=== PATIENT | female | born 1990 | race Caucasian/White ===

== ENCOUNTER 2019-02-25 14:06 | Emergency (ER) | payer OTHER, SELFPAY ==
[2019-02-25 14:22] VITALS: BP 127/76; PULSE 108; RESP 13; TEMP 37.1; O2SAT 98; BMI 44.2
--- NOTE | 2019-02-25 14:34 | ED.FEMALEGU ---
HPI - Female Genitourinary General Chief complaint: OB/Uterine Contractions Stated complaint: spotting, cramping 5 weeks Time Seen by Provider: 02/25/19 14:13 Source: patient and family Mode of arrival: ambulatory Limitations: no limitations History of Present Illness HPI Narrative: 28-year-old female at 5 weeks presents with a chief complaint of spotting and generalized lower pelvic cramping for the past week or so. She has been seen and evaluated both by her primary care provider and by another emergency department. Her most recent HCG was 240 on Tuesday. She had been scheduled for an outpatient pelvic ultrasound. She is not dizzy or weak or lightheaded. She denies any fever or chills. She denies heavy bleeding, only noted with wiping MD Complaint: vaginal bleeding Onset (ago): day(s) Severity: mild Quality: Aching Duration: constant Relieving factors: none Exacerbating factors: none Vaginal discharge: dark blood Related Data : 3 Para: 2 Review of Systems Constitutional Denies chills, Denies fever(s), Denies lethargy and Denies weakness Eyes Denies change in vision, Denies eye discharge, Denies irritation and Denies loss of vision ENT Ears, Nose, Mouth, and Throat: Denies change in voice, Denies neck pain and Denies sore throat Cardiovascular Denies chest pain, Denies irregular heart rhythm, Denies lightheadedness, Denies palpitations, Denies dyspnea, Denies dyspnea on exertion and Denies orthopnea Respiratory Denies cough, Denies dyspnea, Denies dyspnea on exertion and Denies wheezing Gastrointestinal Gastrointestinal: Denies abdominal pain, Denies change in bowel habits, Denies diarrhea, Denies nausea and Denies vomiting Genitourinary Reports abnormal vaginal bleeding, Denies hematuria, Denies flank pain, Denies urinary incontinence and Denies urinary urgency Musculoskeletal Denies neck pain Integumentary/Breasts Denies pruritus, Denies erythema, Denies rash and Denies wounds Neurologic Denies confusion, Denies loss of vision and Denies weakness Psychiatric Denies anxiety, Denies confusion, Denies depression, Denies homicidal ideation and Denies suicidal ideation Endocrine Denies palpitations Hematologic/Lymphatic Denies easy bruising Allergic/Immunologic Denies wheezing PFSH Social History Smoking Status: Never smoker Social History Smoking Status: Never smoker Exam Narrative Exam Narrative: GEN: AOx3 and in mild distress EYES: Pupils are equal, round, and reactive to light and accommodation. Extraoccular muscles are intact bilaterally. There is no subconjunctival hemorrhage or exudate. CHEST: Lungs are clear to auscultation bilaterally and free of wheezes, rales, or rhonchi. Heart rate is regular rhythm, there are no murmurs, clicks, rubs, or gallops. There is no chest wall tenderness. ABD: Abdomen is soft and nontender. There is no guarding or rebound. Bowel sounds are normal in all 4 quadrants. There is no mass or organomegaly. EXT: Full painless ROM of all extremities with no loss of sensation or strength. SKIN: Warm, pink, and dry. No erythema or rash Initial Vital Signs Initial Vital Signs: Vital Signs Temperature 98.8 F 02/25/19 14:22 Pulse Rate 108 H 02/25/19 14:22 Respiratory Rate 13 02/25/19 14:22 Blood Pressure 127/76 02/25/19 14:22 Pulse Oximetry 98 02/25/19 14:22 Course Orders Ordered: ED Orders 02/25/19 14:40 Complete Blood Count AUTO DIFF Stat HCG Quantitative Stat 02/25/19 14:45 US pelvic complete Stat Vital Signs - 8 hr 02/25/19 14:22 02/25/19 16:19 02/25/19 16:48 Temperature 98.8 F Pulse Rate 108 H 93 H 82 Respiratory Rate 13 15 20 Blood Pressure 127/76 149/104 H Blood Pressure [Right Arm] 130/75 Pulse Oximetry 98 98 99 MDM - Female Genitourinary Lab Data Result diagrams: 02/25/19 14:40 Lab Results 02/25/19 02/25/19 Range/Units 14:40 14:40 WBC 8.7 (4.5-11.0) X10^3/uL RBC 4.65 (4.0-5.2) X10^6/uL Hgb 13.6 (12.0-16.0) g/dL Hct 40.0 (36-46) % MCV 86.0 (80-100) fL MCH 29.2 (26-34) PG MCHC 33.9 (30-36) % RDW 13.0 (11.6-14.8) % Plt Count 289 (150-400) X10^3/uL Neut % (Auto) 60.7 (50-75) % Lymph % (Auto) 30.1 (25-40) % [place] % (Auto) 6.0 (3-14) % Eos % (Auto) 2.4 (2-4) % Baso % (Auto) 0.8 (0-2) % Neut # (Auto) 5300 (3968-2813) /uL Lymph # (Auto) 2600 (7687-1422) /uL [place] # (Auto) 500 (0-900) /uL Eos # (Auto) 200 (0-450) /uL Baso # (Auto) 100 (0-100) /uL HCG, Quant 95.06 mIU/mL Urine Dip Bedside Urine Glucose Negative Bedside Urine Bilirubin - Negative Bedside Urine Ketone - Negative Urine Specific [place] 1.015 Bedside Urine Occult Blood +++ Bedside Urine pH 8.0 Bedside Urine Protein - Negative Bedside Urine Urobilinogen - Negative Bedside Urine Nitrite - Negative Bedside Urine Leukocytes - Negative Esterase Imaging Data Pelvic US: Radiologist's impression: Sulma Middleton 28 F 1990 [place] [address] Ultrasound Report Signed Patient: Sulma Middleton [facility]#: [id number] : 1990Acct:[id number] Age/Sex: 28 / FDate of Service: 02/25/19 Loc: ED Accession Number: [id number] Procedure: US pelvic complete Ordering Provider: Kj Jimenez D.O. PROCEDURE: US PELVIC COMPLETE INDICATIONS: POSITIVE HCG; BLEEDING, PAIN TECHNIQUE: Real-time scanning was performed of the pelvic organs, with image documentation. Additional endovaginal scanning was necessary due to incomplete visualization of the adnexal and endometrial structures by transabdominal scanning. COMPARISON: None. FINDINGS: Transabdominal scanning: Limited scanning through the kidneys shows no hydronephrosis. No pathologic free abdominal or pelvic fluid. Endovaginal scanning: Uterus: Uterus is normal in size at 7.3 x 5.8 x 6.3 cm. The endometrium measures 13 mm in combined thickness. No findings of an intrauterine can be seen. Ovaries: The right ovary measures 3.5 x 2.2 0.8 cm and demonstrates an unremarkable sonographic appearance. The left ovary measures 2.6 x 2.3 x 3.1 cm. Immediately adjacent to the left ovary, there is a complex mass with increased internal vascularity that measures 2.7 x 1.6 x 1.5 cm. IMPRESSION: These findings are highly suspicious for a left adnexal ectopic . An urgent COMPUTER NETWORK ENGINEER consultation is recommended. Note: Findings and recommendations discussed by telephone with Dr. Jimenez at 4:24 PM [place] time on the day of dictation. Dictated by: Jarred Robertson M.D. on 02/25/2019 at 15:21 Approved by: Jarred Robertson M.D. on 02/25/2019 at 15:25 MDM Narrative Medical decision making narrative: 28-year-old female at about 5 weeks presents with a week or so of spotting and pelvic cramping. HCG was at 2:40 a.m. on Tuesday and dropped to the 90s today. Bleeding is minimal. Pelvic ultrasound suggests a vascular structure next to the left ovary the raising the question of an ectopic by Radiology. I discussed the case with on-call OB and given the low HCG (below discriminatory zone) we both question whether this is ectopic. Ob suggest this is likely a corpus luteum cyst and recommends the patient be followed up closely [place] Return precautions given to the patient and her . All questions answered to their apparent satisfaction. Discharge Plan Departure Patient Disposition: Home Clinical Impression: Pelvic pain affecting Qualifiers: Trimester: first trimester Qualified Code(s): O26.891 - Other specified related conditions, first trimester Discharge Date/Time: 02/25/19 16:49 Interventions: ED Discharge Assessment Last Done: 02/25/19 16:48 Instructions: DI for Pelvic Pain Activity Restrictions/Additional Instructions: *You have been diagnosed with [pelvic pain in , possible ectopic] *What to do: *Continue to take medications as directed: *Follow up with your OB provider NO LATER THAN TUESDAY, call for an appointment. Let them know you were seen in the Emergency Department and that we ask that you be seen in follow up *Return to ER if you should have any new, worsening or concerning symptoms, such as [increasing pain, fever greater than 101 F, persistent vomiting, bleeding through more than 1 pad per hour, or any other bothersome symptoms *I've given you contact info for Dr. White (our OB) in the event you have trouble getting [place] Referrals: Jay White MD [Physician] -
--- NOTE | 2019-02-25 14:45 | DI.US.S_ITS ---
PROCEDURE: US PELVIC COMPLETE INDICATIONS: POSITIVE HCG; BLEEDING, PAIN TECHNIQUE: Real-time scanning was performed of the pelvic organs, with image documentation. Additional endovaginal scanning was necessary due to incomplete visualization of the adnexal and endometrial structures by transabdominal scanning. COMPARISON: None. FINDINGS: Transabdominal scanning: Limited scanning through the kidneys shows no hydronephrosis. No pathologic free abdominal or pelvic fluid. Endovaginal scanning: Uterus: Uterus is normal in size at 7.3 x 5.8 x 6.3 cm. The endometrium measures 13 mm in combined thickness. No findings of an intrauterine can be seen. Ovaries: The right ovary measures 3.5 x 2.2 0.8 cm and demonstrates an unremarkable sonographic appearance. The left ovary measures 2.6 x 2.3 x 3.1 cm. Immediately adjacent to the left ovary, there is a complex mass with increased internal vascularity that measures 2.7 x 1.6 x 1.5 cm. IMPRESSION: These findings are highly suspicious for a left adnexal ectopic . An urgent ONLINE HEALTH AND FITNESS COACH consultation is recommended. Note: Findings and recommendations discussed by telephone with Dr. Jimenez at 4:24 PM [place] time on the day of dictation. Dictated by: Jarred Robertson M.D. on 02/25/2019 at 15:21 Approved by: Jarred Robertson M.D. on 02/25/2019 at 15:25
[2019-02-25 14:48] LABS: Add Manual Diff / Slide Review NO; Basophils Absolute Auto 100 /uL (0-100); Basophils Percent Auto 0.8 % (0-2); Eosinophils Absolute Auto 200 /uL (0-450); Eosinophils Percent Auto 2.4 % (2-4); Hemoglobin 13.6 g/dL (12.0-16.0); Lymphocytes Absolute Auto 2600 /uL (1100-4500); Lymphocytes Percent Auto 30.1 % (25-40); Mean Corpuscular HGB Conc 33.9 % (30-36); Mean Corpuscular Hemoglobin 29.2 PG (26-34); Monocytes Absolute Auto 500 /uL (0-900); Neutrophils Absolute Auto 5300 /uL (1500-7000); Neutrophils Percent Auto 60.7 % (50-75); Platelet Count 289 X10^3/uL (150-400); Red Blood Cell Count 4.65 X10^6/uL (4.0-5.2); White Blood Cell Count 8.7 X10^3/uL (4.5-11.0)
--- NOTE | 2019-02-25 14:49 | ED_ITS ---
HPI - Female Genitourinary General Chief complaint: OB/Uterine Contractions Stated complaint: spotting, cramping 5 weeks Time Seen by Provider: 02/25/19 14:13 Source: patient and family Mode of arrival: ambulatory Limitations: no limitations History of Present Illness HPI Narrative: 28-year-old female at 5 weeks presents with a chief complaint of spotting and generalized lower pelvic cramping for the past week or so. She has been seen and evaluated both by her primary care provider and by another emergency department. Her most recent HCG was 240 on Tuesday. She had been scheduled for an outpatient pelvic ultrasound. She is not dizzy or weak or lightheaded. She denies any fever or chills. She denies heavy bleeding, only noted with wiping MD Complaint: vaginal bleeding Onset (ago): day(s) Severity: mild Quality: Aching Duration: constant Relieving factors: none Exacerbating factors: none Vaginal discharge: dark blood Related Data : 3 Para: 2 Review of Systems Constitutional Denies chills, Denies fever(s), Denies lethargy and Denies weakness Eyes Denies change in vision, Denies eye discharge, Denies irritation and Denies loss of vision ENT Ears, Nose, Mouth, and Throat: Denies change in voice, Denies neck pain and Den ies sore throat Cardiovascular Denies chest pain, Denies irregular heart rhythm, Denies lightheadedness, Denies palpitations, Denies dyspnea, Denies dyspnea on exertion and Denies orthopnea Respiratory Denies cough, Denies dyspnea, Denies dyspnea on exertion and Denies wheezing Gastrointestinal Gastrointestinal: Denies abdominal pain, Denies change in bowel habits, Denies diarrhea, Denies nausea and Denies vomiting Genitourinary Reports abnormal vaginal bleeding, Denies hematuria, Denies flank pain, Denies urinary incontinence and Denies urinary urgency Musculoskeletal Denies neck pain Integumentary/Breasts Denies pruritus, Denies erythema, Denies rash and Denies wounds Neurologic Denies confusion, Denies loss of vision and Denies weakness Psychiatric Denies anxiety, Denies confusion, Denies depression, Denies homicidal ideation and Denies suicidal ideation Endocrine Denies palpitations Hematologic/Lymphatic Denies easy bruising Allergic/Immunologic Denies wheezing PFSH Social History Smoking Status: Never smoker Social History Smoking Status: Never smoker Exam Narrative Exam Narrative: GEN: AOx3 and in mild distress EYES: Pupils are equal, round, and reactive to light and accommodation. Extraoccular muscles are intact bilaterally. There is no subconjunctival hemorrhage or exudate. CHEST: Lungs are clear to auscultation bilaterally and free of wheezes, rales, or rhonchi. Heart rate is regular rhythm, there are no murmurs, clicks, rubs, or gallops. There is no chest wall tenderness. ABD: Abdomen is soft and nontender. There is no guarding or rebound. Bowel sounds are normal in all 4 quadrants. There is no mass or organomegaly. EXT: Full painless ROM of all extremities with no loss of sensation or strength. SKIN: Warm, pink, and dry. No erythema or rash Initial Vital Signs Initial Vital Signs: Vital Signs Temperature 98.8 F 02/25/19 14:22 Pulse Rate 108 H 02/25/19 14:22 Respiratory Rate 13 02/25/19 14:22 Blood Pressure 127/76 02/25/19 14:22 Pulse Oximetry 98 02/25/19 14:22 Course Orders Ordered: ED Orders 02/25/19 14:40 Complete Blood Count AUTO DIFF Stat HCG Quantitative Stat 02/25/19 14:45 US pelvic complete Stat Vital Signs - 8 hr 02/25/19 14:22 02/25/19 16:19 02/25/19 16:48 Temperature 98.8 F Pulse Rate 108 H 93 H 82 Respiratory Rate 13 15 20 Blood Pressure 127/76 149/104 H Blood Pressure [Right Arm] 130/75 Pulse Oximetry 98 98 99 MDM - Female Genitourinary Lab Data Result diagrams: 02/25/19 14:40 Lab Results 02/25/19 02/25/19 Range/Units 14:40 14:40 WBC 8.7 (4.5-11.0) X10^3/uL RBC 4.65 (4.0-5.2) X10^6/uL Hgb 13.6 (12.0-16.0) g/dL Hct 40.0 (36-46) % MCV 86.0 (80-100) fL MCH 29.2 (26-34) PG MCHC 33.9 (30-36) % RDW 13.0 (11.6-14.8) % Plt Count 289 (150-400) X10^3/uL Neut % (Auto) 60.7 (50-75) % Lymph % (Auto) 30.1 (25-40) % [facility] % (Auto) 6.0 (3-14) % Eos % (Auto) 2.4 (2-4) % Baso % (Auto) 0.8 (0-2) % Neut # (Auto) 5300 (1612-6202) /uL Lymph # (Auto) 2600 (7833-8395) /uL [facility] # (Auto) 500 (0-900) /uL Eos # (Auto) 200 (0-450) /uL Baso # (Auto) 100 (0-100) /uL HCG, Quant 95.06 mIU/mL Urine Dip Bedside Urine Glucose Negative Bedside Urine Bilirubin - Negative Bedside Urine Ketone - Negative Urine Specific [place] 1.015 Bedside Urine Occult Blood +++ Bedside Urine pH 8.0 Bedside Urine Protein - Negative Bedside Urine Urobilinogen - Negative Bedside Urine Nitrite - Negative Bedside Urine Leukocytes - Negative Esterase Imaging Data Pelvic US: Radiologist's impression: Sulma Middleton 28 F 1990 [place] [address] Ultrasound Report Signed Patient: Sulma Middleton [facility]#: [id number] : 1990Acct:[id number] Age/Sex: 28 / FDate of Service: 02/25/19 Loc: ED Accession Number: [id number] Procedure: US pelvic complete Ordering Provider: Kj Jimenez D.O. PROCEDURE: US PELVIC COMPLETE INDICATIONS: POSITIVE HCG; BLEEDING, PAIN TECHNIQUE: Real-time scanning was performed of the pelvic organs, with image documentation. Additional endovaginal scanning was necessary due to incomplete visualization of the adnexal and endometrial structures by transabdominal scanning. COMPARISON: None. FINDINGS: Transabdominal scanning: Limited scanning through the kidneys shows no hydronephrosis. No pathologic free abdominal or pelvic fluid. Endovaginal scanning: Uterus: Uterus is normal in size at 7.3 x 5.8 x 6.3 cm. The endometrium measures 13 mm in combined thickness. No findings of an intrauterine can be seen. Ovaries: The right ovary measures 3.5 x 2.2 0.8 cm and demonstrates an unremarkable sonographic appearance. The left ovary measures 2.6 x 2.3 x 3.1 cm. Immediately adjacent to the left ovary, there is a complex mass with increased internal vascularity that measures 2.7 x 1.6 x 1.5 cm. IMPRESSION: These findings are highly suspicious for a left adnexal ectopic . An urgent TEST DEPARTMENT HELPER consultation is recommended. Note: Findings and recommendations discussed by telephone with Dr. Jimenez at 4:24 PM [place] time on the day of dictation. Dictated by: Jarred Robertson M.D. on 02/25/2019 at 15:21 Approved by: Jarred Robertson M.D. on 02/25/2019 at 15:25 MDM Narrative Medical decision making narrative: 28-year-old female at about 5 weeks presents with a week or so of spotting and pelvic cramping. HCG was at 2:40 a.m. on Tuesday and dropped to the 90s today. Bleeding is minimal. Pelvic ultrasound suggests a vascular structure next to the left ovary the raising the question of an ectopic by Radiology. I discussed the case with on-call OB and jaymie paula the low HCG (below discriminatory zone) we both question whether this is ectopic. Ob suggest this is likely a corpus luteum cyst and recommends the patient be followed [place] closely [place] Return precautions given to the patient and her . All questions answered to their apparent satisfaction. Discharge Plan Departure Patient Disposition: Home Clinical Impression: Pelvic pain affecting Qualifiers: Trimester: first trimester Qualified Code(s): O26.891 - Other specified related conditions, first trimester Discharge Date/Time: 02/25/19 16:49 Interventions: ED Discharge Assessment Last Done: 02/25/19 16:48 Instructions: DI for Pelvic Pain Activity Restrictions/Additional Instructions: *You have been diagnosed with [pelvic pain in , possible ectopic] *What to do: *Continue to take medications as directed: *Follow up with your OB provider NO LATER THAN TUESDAY, call for an appointment. Let them know you were seen in the Emergency Department and that we ask that you be seen in follow up *Return to ER if you should have any new, worsening or concerning symptoms, such as [increasing pain, fever greater than 101 F, persistent vomiting, bleeding through more than 1 pad per hour, or any other bothersome symptoms *I've given you contact info for Dr. White (our OB) in the event you have trouble [place] Referrals: Jay White MD [Physician] -
[2019-02-25 15:18] LABS: HCG Quantitative /Beta subunit 95.06 mIU/mL
[2019-02-25 16:19] VITALS: BP 130/75; PULSE 93; RESP 15; O2SAT 98
[2019-02-25 16:48] VITALS: BP 149/104; PULSE 82; RESP 20; O2SAT 99
== END 2019-02-25 16:49 | disposition home or self-care (01) ==
PROVIDERS: Emergency Provider Emergency Medicine
DX: O26.891 Other specified pregnancy related conditions, first trimester (principal); Z3A.01 Less than 8 weeks gestation of pregnancy
CPT/HCPCS: 36415; 76830; 76856; 81003; 84702; 85025; 99283; 99284